=== PATIENT | female | born 1990 | race African-American/Black ===

== ENCOUNTER 2017-10-20 13:05 | Emergency (ER) | payer OTHER ==
[~2017-10-20] VITALS: Ht 149.9 cm; Wt 65.8 kg
[2017-10-20 15:15] LABS: URINE BILIRUBIN NEGATIVE (Negative); URINE BLOOD 3+ (Negative); URINE CLARITY CLEAR; URINE COLOR YELLOW; URINE GLUCOSE-RANDOM* NEGATIVE (Negative); URINE KETONES NEGATIVE (Negative); URINE NITRITE-REFLEX NEGATIVE (Negative); URINE PROTEIN (DIPSTICK) NEGATIVE (Negative); URINE UROBILINOGEN 0.2 E.U./dl (0.2-1.0)
[2017-10-20 15:16] LABS: URINE LEUKOCYTES-REFLEX TRACE (Negative)
[2017-10-20 15:35] LABS: BACTERIA-REFLEX 1-9 Few /HPF (None Seen); CASTS None Seen /LPF (None Seen); CRYSTALS None Seen /LPF (None Seen); SQUAMOUS >10 Many /LPF (0-3); URINE RBC 3-10 Few /HPF (0-2); URINE WBC-REFLEX 6-15 Few /HPF (0-5)
[2017-10-20 16:10] LABS: ABSOLUTE NEUTROPHILS 7.6 thou/uL (1.4-8.2); BASOPHILS 0.4 % (0.0-2.0); EOSINOPHILS 0.4 % (0.0-3.0); HEMATOCRIT 39.2 % (37.0-47.0); HEMOGLOBIN 13.1 gm/dL (12.0-15.0); MCH 29.2 pg (26.0-34.0); MCHC 33.3 g/dL (28.0-37.0); MCV 87.6 fL (80.0-100.0); MONOCYTES 6.3 % (1.0-8.0); PLATELET COUNT 315 thou/uL (150-400); POLYS 78.9 % (36.0-66.0); RBC 4.47 mil/uL (4.20-5.00); RDW 13.2 % (10.5-14.5); WBC 9.6 thou/uL (4.0-11.0)
[2017-10-20] MEDS ORDERED: IBUPROFEN 600600 M1 PO (16:37)
[2017-10-20] MEDS ORDERED: MACROBID 100 M100 M1 PO (16:39)
[2017-10-20 17:21] LABS: CALCIUM 9.1 mg/dL (8.5-10.1); CREATININE 0.9 mg/dL (0.6-1.0); POTASSIUM 3.8 mmol/L (3.5-5.1)
[2017-10-20 17:27] LABS: ALBUMIN 3.8 g/dL (3.4-5.0); TOTAL BILIRUBIN 0.6 mg/dL (<0.1-1.0)
[2017-10-20 17:45] VITALS: BP 127/62
[2017-10-21] MEDS ORDERED: BUSPIRONE HCL10 MG PO (23:09)
[2017-10-21] MEDS ORDERED: LOPRESSOR50 PO (23:09)
== END 2017-10-20 17:52 | disposition home or self-care (01) ==
LOC: ER 13:05
PROVIDERS: Physician Assistant
DX: D25.9 Leiomyoma of uterus, unspecified (principal)

== ENCOUNTER 2017-10-21 22:41 | Emergency (ER) | payer OTHER ==
[~2017-10-21] VITALS: Ht 149.9 cm; Wt 63.5 kg
[~2017-10-21 22:41] MED LIST: IBUPROFEN 600600 M1 PO; MACROBID 100 M100 M1 PO
[2017-10-21] MEDS ORDERED: BUSPIRONE HCL10 MG PO (23:09)
[2017-10-21] MEDS ORDERED: LOPRESSOR50 PO (23:09)
[2017-10-21 23:28] LABS: ABSOLUTE NEUTROPHILS 11.2 thou/uL (1.4-8.2); BASOPHILS 0.1 % (0.0-2.0); EOSINOPHILS 0.1 % (0.0-3.0); HEMATOCRIT 37.9 % (37.0-47.0); HEMOGLOBIN 12.6 gm/dL (12.0-15.0); LYMPHOCYTES 8.4 % (24.0-44.0); MCHC 33.2 g/dL (28.0-37.0); MCV 87.3 fL (80.0-100.0); MONOCYTES 5.3 % (1.0-8.0); PLATELET COUNT 303 thou/uL (150-400); POLYS 86.1 % (36.0-66.0); RBC 4.34 mil/uL (4.20-5.00); RDW 13.2 % (10.5-14.5)
[2017-10-21 23:36] LABS: CALCIUM 9.2 mg/dL (8.5-10.1); CREATININE 1.1 mg/dL (0.6-1.0); POTASSIUM 3.9 mmol/L (3.5-5.1)
[2017-10-21 23:42] LABS: ALBUMIN 3.4 g/dL (3.4-5.0); DIRECT BILIRUBIN 0.3 mg/dL (<0.1-0.3); TOTAL BILIRUBIN 0.9 mg/dL (<0.1-1.0); TOTAL PROTEIN 8.2 g/dL (6.4-8.2)
[2017-10-22] MEDS ORDERED: ZOFRAN ODT4 MG PO (01:17)
[2017-10-22] MEDS ORDERED: NORCO 5-325 TA1 EACH PO (01:18)
[2017-10-22 01:32] VITALS: BP 91/58
== END 2017-10-22 01:33 | disposition home or self-care (01) ==
LOC: ER 22:41
PROVIDERS: Emergency Medicine
DX: K52.9 Noninfective gastroenteritis and colitis, unspecified (principal); K56.7 Ileus, unspecified